=== PATIENT | male | born 1985 | race Caucasian/White ===

== ENCOUNTER → 2021-09-20 10:23 | Outpatient (CLI) | payer OTHER, MEDICAID, SELFPAY ==
--- NOTE | 2021-09-20 10:32 | VDLE_ITS ---
Reason For Study: pain RIGHT GSV is normal. CFV is compressible, spontaneous, phasic, competent and demonstrates normal augmentation. FV is compressible, spontaneous, phasic, competent and demonstrates normal augmentation. POP V is compressible, spontaneous, phasic, competent and demonstrates normal augmentation. T/P Trunk is compressible. PTV is compressible. RT PerV is compressible. Procedure This is a venous duplex using B-mode, color flow and spectral Doppler. Exam performed in department. The exam was abbreviated due to the COVID 19 protocol. The exam was diagnostic. A preliminary report was called and/or faxed to [facility]. VL/Venous Duplex US, Unilateral Interpretation Summary Deep veins of the right lower extremity are patent and compressible segmentally . There is no evidence of right lower extremity deep vein thrombosis. Valvular competence stefani ears intact within the proximal deep venous system on the right . The right great saphenous vein a ppears patent and compressible segmentally. Ordering Physician: Mary Grace Grant Performed By: Igor Guerrero RVT
== END ==
PROVIDERS: Referring Provider Registered Nurse; Visit Provider Registered Nurse
DX: M79.604 Pain in right leg (principal)
CPT/HCPCS: 93971

== ENCOUNTER → 2021-10-06 09:56 | Outpatient (CLI) | payer OTHER, MEDICAID, SELFPAY ==
--- NOTE | 2021-10-06 10:05 | RAD_ITS ---
STUDY: X-RAY - BILATERAL RIBS WITH CHEST REASON FOR EXAM: Male, 36 years old. RIB FRACTURE TECHNIQUE - RIBS: 4 view(s) of the ribs. TECHNIQUE - CHEST: Single PA view of the chest. COMPARISON: None. FINDINGS - RIBS : Multiple nondisplaced left-sided rib fractures. FINDINGS - CHEST: The lungs are clear and expanded. There is no demonstrated pleural abnormality. Normal size heart. Normal mediastinum and kyrie. Normal visualized pulmonary arteries. Normal visualized aortic arch and descending thoracic aorta. Normal visualized thoracic spine. Nondisplaced left rib fracture. There is no demonstrated abnormality of the visualized soft tissue structures of the upper abdomen. RAD/Ribs Roger Min 4V w/PA Chest IMPRESSION: RIBS: Multiple nondisplaced left rib fractures. CHEST: Normal x-ray examination of the chest. Electronically Signed: Brant English MD at 12:37 EST , Service support ,
--- NOTE | 2021-10-06 10:06 | RAD_ITS ---
STUDY: X-RAY - THORACIC SPINE REASON FOR EXAM: Male, 36 years old. FRACTURE TECHNIQUE: 2 view(s) of the thoracic spine were obtained. COMPARISON: None. FINDINGS: Normal kyphosis of the thoracic spine. There is no substantial scoliosis. Normal thoracic vertebrae and endplates. There is mild disc space narrowing of the thoracic spine. The soft tissue structures are unremarkable. RAD/Thoracic Spine 2 Views IMPRESSION: Mild degree of disc space narrowing. Electronically Signed: Brant English MD at 12:38 EST , Service support ,
--- NOTE | 2021-10-06 10:08 | RAD_ITS ---
STUDY: X-RAY CHEST REASON FOR EXAM: Male, 36 years old. RIB FX TECHNIQUE: PA and lateral views of the chest. COMPARISON: None. FINDINGS: The lungs are clear and expanded. There is no demonstrated pleural abnormality. Normal size heart. Normal mediastinum and kyrie. Normal visualized pulmonary arteries. Normal visualized aortic arch and descending thoracic aorta. Normal visualized thoracic spine. There are multiple nondisplaced left rib fractures. There is no demonstrated abnormality of the visualized soft tissue structures of the upper abdomen. RAD/Chest PA and Lateral IMPRESSION: Multiple nondisplaced left rib fractures. Electronically Signed: Brant English MD at 12:38 EST , Service support ,
== END ==
PROVIDERS: PCP Family Medicine; Referring Provider Family Medicine; Visit Provider Family Medicine
DX: S22.39XA Fracture of one rib, unspecified side, initial encounter for closed fracture (principal); S22.009A Unspecified fracture of unspecified thoracic vertebra, initial encounter for closed fracture
CPT/HCPCS: 71046; 71111; 72070

== ENCOUNTER → 2021-10-12 | Outpatient (CLI) | payer OTHER, MEDICAID, SELFPAY | END | disposition home or self-care (01) | LOC: LABSPEC 15:10 | PROVIDERS: PCP Family Medicine; Visit Provider Family Medicine | DX: B34.9 Viral infection, unspecified (principal) | CPT/HCPCS: 87635; U0005; U0003 ==

== ENCOUNTER → 2022-11-15 | Outpatient (CLI) | payer OTHER, SELFPAY ==
[2022-11-15 12:58] LABS: Thyroid Stim Hormone (TSH) 1.73 uIU/mL (0.358-3.74)
== END | disposition home or self-care (01) ==
LOC: MFPLAB 10:02
PROVIDERS: PCP Family Medicine; Referring Provider Family Medicine; Visit Provider Family Medicine
DX: F41.9 Anxiety disorder, unspecified (principal)
CPT/HCPCS: 36415; 84443

== ENCOUNTER 2023-12-13 12:00 | Outpatient (RCR) | payer OTHER, SELFPAY ==
--- NOTE | 2023-11-14 09:46 | HP.PTEVAL_ITS ---
Patient's Visit Information Visit Information Visit Information: RACHEL MELENDREZ is a 38 year old M referred to Physical Therapy by Dr. Gopi Parker MD with a diagnosis of Dislocation L ulnohumeral, coronoid fracture.. Date of Evaluation: 11/14/23 Physical Therapist: Frederick Tavera, DPT, OCS, CSCS Visit Plan Frequency: 1-2x /Week Duration: 2 Months Plan: 1-2x/week for 6-8 weeks as needed, start ROM and helaing management. progress to strength when appropriate and return to [facility] emergency department Today given elbow flexion and exct adn pronation L ROM and educat kenyon use of ice, Resting arm and use/weaning of sling to tolerance over two weeks Pt to be out of town for two weeks and f/u upon returning. Subjective Subjective: Slipped on ice at work 8 days ago 11/06/23. Fell on outstretched arm and dislocated L elbow and fractured elbow tip. Went to in [place] and splinted and sling for 6 days. F/U with Elena 2 days ago who took off splint and recommended rest and ice adn PT. 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 Will continue to work just not with L arm. Pain is mild 0-4/10 with moving it wrong Sleep is OK. In sling much of day but not when resting. Bvasic ADLs are getting done but struggle with one arm, is R handed. Hobbies: racing. Out of town for frequent periods and 2/-2/ Pain L elbow: Pain Intensity (Out of 10): 0 Pain Intensity Range: 0 and 5 Objective Objective: Pronation L is painful 40 degrees of movement L elbow -50 ext to 90 bend Walks normal and I, sling on, donned adn doffed I. Holds arm 60 degrees from full extension and tight when sling not on, protective. Shoulder and scap aROM is full B wrist flexiona nd extension WNL B, pronation painful at 85 degrees on L, not on R. Full supination and symmetrical. strength at thumb and wrist slightly painful on L pronation and supination. elbow flexion adn extension not tested. Sensation B UE WNL to gross light touch. painful at limit of L elbow flexion adn extension transiently. Swollen at olecranon L and slightly bruised, also brusing distal anterior wrist. Balance/Special Test Scores Quick DASH Score: 59.0900 Goals Goal 1:: ST: Full PROM and pain 0/10 and 90% better Goal Time Frame: 2-4 Weeks Goal 2:: LT, strength symmetrical with R and painfree. Goal Time Frame: 6-8 Weeks Goal 3:: Patient return to full work duty Goal Time Frame: 6-8 Weeks Goal 4:: quickdash score 15 Goal Time Frame: 6-8 Weeks Rehabilitation Potential Physical Therapy Diagnosis: L elbow lacking ROM and painful limting function, work Rehabilitation Potential: Good Anticipated Interventions Patient/Client Instruction: Educate patient on: Condition and Risk Factors For the Purpose of:: To decrease pain, To increase ROM, To improve muscle performance and motor function, To increase tolerance to activity/condition/position, To improve ability of physical actions for home/community/work/leisure and To improve gait and locomotor functions Therapeutic Exercise to Include: Strength training, Flexibilty training, Passive ROM and Active ROM For the Purpose of:: To decrease pain, To decrease swelling/inflammation, To increase ROM, To improve nutrient delivery to tissue, To improve muscle performance and motor function and To increase tolerance to activity/condition/position Manual Therapy Techniques to Include: Mobilization and Passive ROM For the Purpose of:: To decrease pain, To increase ROM, To improve nutrient delivery to tissue, To improve muscle performance and motor function and To increase tolerance to activity/condition/position Cryotherapy (ice pack, ice massage): Yes For the Purpose of:: To decrease pain and To decrease swelling/inflammation Text: Thank you for the opportunity to evaluate your patient. For Medicare and Medicare HMO plans, please review the plan of care and approve it. It will need to be FAXED BACK to us at [phone] for Medicare purposes. For Medicare only, by signing this I certify the plan of care. Please let me know if there are questions or concerns regarding this plan of care. Physician Signature: Date:
--- NOTE | 2024-04-07 08:58 | HP.PT.NRP ---
Patient Information Patient Information: RACHEL MELENDREZ was seen in my office for initial evaluation on 11/14/23. The following Plan of Care was established for this patient: POC Established Initial Frequency: 1-2x /Week Initial Duration: 2 Months Anticipated Interventions Patient/Client Instruction: Educate patient on: Condition and Risk Factors For the Purpose of:: To decrease pain, To increase ROM, To improve muscle performance and motor function, To increase tolerance to activity/condition/position, To improve ability of physical actions for home/community/work/leisure and To improve gait and locomotor functions Therapeutic Exercise to Include: Strength training, Flexibilty training, Passive ROM and Active ROM For the Purpose of:: To decrease pain, To decrease swelling/inflammation, To increase ROM, To improve nutrient delivery to tissue, To improve muscle performance and motor function and To increase tolerance to activity/condition/position Manual Therapy Techniques to Include: Mobilization and Passive ROM For the Purpose of:: To decrease pain, To increase ROM, To improve nutrient delivery to tissue, To improve muscle performance and motor function and To increase tolerance to activity/condition/position Cryotherapy (ice pack, ice massage): Yes For the Purpose of:: To decrease pain and To decrease swelling/inflammation Last Seen Last Seen: This patient was last seen in our office 12/13/23. Pertinent comments regarding their Physical therapy will appear below: Pt seen 5 visits of POC and was 90% better. he was going to be out of town until February and POC required him to get back in at that time if needed. It has been over a month and I will discontinue him from my care At this point I will be discontinuing this patient from physical therapy. I would be happy to see this patient again in the future if found appropriate by the physician. Thank you! Frederick Tavera, DPT, OCS, CSCS Balance/Gait/Functional tests Balance/Special Test Scores Quick DASH Score: 59.0900
== END 2023-12-13 19:00 | disposition home or self-care (01) ==
LOC: PT 12:00
PROVIDERS: PCP Family Medicine; Referring Provider Orthopaedic Surgery Sports Medicine; Visit Provider Orthopaedic Surgery Sports Medicine
DX: S53.105D Unspecified dislocation of left ulnohumeral joint, subsequent encounter (principal)
CPT/HCPCS: 97110; 97140; 97161